=== PATIENT | male | born 1975 | race Caucasian/White ===

== ENCOUNTER 2018-11-17 10:01 | Emergency (ER) | payer SELFPAY ==
[2018-11-17 10:16] VITALS: BP 122/84; PULSE 65; TEMP 98.2; BMI 31.6
== END 2018-11-17 10:43 | disposition left against medical advice (07) ==
LOC: JER 10:01
DX: Z53.21 Procedure and treatment not carried out due to patient leaving prior to being seen by health care provider (principal)
CPT/HCPCS: 99281-25

== ENCOUNTER 2021-10-20 13:39 | Emergency (ER) | payer OTHER ==
[2021-10-20 13:45] VITALS: TEMP 98.3; BMI 33.9
[2021-10-20] MEDS ORDERED: KETOROLAC TROMETHAMINE 30 MG/1 ML VIAL IVPUSH ONE (14:41)
[2021-10-20] MEDS ORDERED: KETOROLAC TROMETHAMINE 30 MG/1 ML VIAL ONE (14:58)
[2021-10-20 15:15] LABS: BASO % 0.4 % (0-2.0); HEMATOCRIT 40.5 % (35.4-49); HEMOGLOBIN 13.4 GM/dL (11.7-16.9); LYMPH % 51.5 % (8-40); MCH 28.3 pg (25.7-33.7); MCHC 33.2 g/dl (32.0-35.9); MEAN CELL VOLUME 85.4 fl (80-96); MEAN PLT VOLUME 7.3 fl (7.5-11.1); NEUT % 40.1 % (42.8-82.8); PLATELET COUNT 250 10^3/uL (134-434); RBC 4.75 M/mm3 (4.00-5.60); RDW 15.3 % (11.9-15.9); WHITE BLOOD COUNT 5.2 K/mm3 (4.0-10.0)
[2021-10-20 15:44] LABS: CALCIUM 9.3 mg/dL (8.5-10.1)
[2021-10-20 15:46] LABS: ALBUMIN 4.1 g/dl (3.4-5.0); BLOOD UREA NITROGEN 17.3 mg/dL (7-18)
[2021-10-20 15:48] LABS: CREATININE 1.1 mg/dL (0.55-1.3)
[2021-10-20 15:50] LABS: BILIRUBIN,TOTAL 0.4 mg/dL (0.2-1); TOT PROT 7.9 g/dl (6.4-8.2)
[2021-10-20] MEDS ORDERED: diazePAM 5 MG TABLET PO ONE (16:52)
[2021-10-20] MEDS ORDERED: LIDOCAINE 5% TOPICAL PATCH TP ONE (16:53)
[2021-10-20] MEDS ORDERED: LIDOCAINE 5% TOPICAL PATCH ONE (17:13)
[2021-10-20] MEDS ORDERED: diazePAM 5 MG TABLET ONE (17:14)
[2021-10-20 18:03] VITALS: BP 138/70; PULSE 80
[2021-10-20] MEDS ORDERED: LIDOCAINE PATCH REMOVAL MC SCH (22:00)
== END 2021-10-20 18:02 | disposition home or self-care (01) ==
LOC: JER 13:39
PROC: 3E0333Z Introduction of Anti-inflammatory into Peripheral Vein, Percutaneous Approach (ICD-10-PCS; principal; 2021-10-20)
DX: M54.2 Cervicalgia (principal)
CPT/HCPCS: 36415; 71046-TC-FY; 80053; 84484; 85025; 93005; 93010; 96374; 99285-25